=== PATIENT | male | born 1945 | race Caucasian/White ===

== ENCOUNTER → 2016-09-19 | Outpatient (CLI) | payer MEDICARE, BC ==
[~2016-09-19] MED LIST: CATHETER FLUSH 10 ML SYR IV PRN
[2016-09-19 08:29] VITALS: BP 114/82
--- NOTE | 2016-09-22 01:43 | STRESS TEST ---
PROCEDURE PHYSICIAN: MARCIN BETTS DATE OF PROCEDURE: 09/19/2016 MYOCARDIAL PERFUSION IMAGING: PRIMARY PHYSICIAN AND PERFORMING PHYSICIAN: Dr. Seth Franklin DIAGNOSIS: R53.83 I10 PROCEDURE DETAILS: Please refer to Dr. Franklin's note for the stress test. Myocardial perfusion imaging was performed with 10.91 mCi of Myoview at rest and 30.9 mCi of Myoview for stress imaging. TID is 1.04. EF is 50%. There is a mild fixed apical defect with normal wall motion which suggests that it is likely artifact. SSS 0, SRS is 0, SDS 0. IMPRESSION/CONCLUSION: 1. Myocardial perfusion imaging suggests a mild fixed apical defect which is likely an artifact due to a normal wall motion on gaited images. 2. Normal LV function. Job ID: [id number] Dictated Date: 09/19/2016 17:13:06 Media Relations Specialist Date: 09/22/2016 01:39:41 / [email or web address]
== END ==
LOC: CARD 06:52
PROVIDERS: ATTEND Internal Medicine
DX: I10 Essential (primary) hypertension (principal); R53.83 Other fatigue
CPT/HCPCS: 78452; 93017